=== PATIENT | female | born 1990 | race Caucasian/White ===

== ENCOUNTER 2020-02-19 07:45 | Outpatient (CLI) | payer OTHER ==
[2020-02-20 12:24] LABS: SARS-CoV-2 MS2 Positive; SARS-CoV-2 N Gene Negative; SARS-CoV-2 S Gene Negative; SARS-CoV-2 orf1ab Negative
== END 2020-02-19 07:46 | disposition home or self-care (01) ==
LOC: LABBT 07:45
PROVIDERS: ATTEND Dentist Oral and Maxillofacial Surgery
DX: Z01.812 Encounter for preprocedural laboratory examination (principal); Z11.59 Encounter for screening for other viral diseases; K08.89 Other specified disorders of teeth and supporting structures
CPT/HCPCS: 87635; U0003

== ENCOUNTER 2020-02-22 05:32 | Day surgery (SDC) | payer OTHER ==
[2020-02-22] MEDS ORDERED: Lidocaine 1% w/Epinephrine 1:100K 20 ML VIAL ONE (06:35)
[2020-02-22] MEDS ORDERED: Chlorhexidine Gluconate 15 ML UDCUP SSP ONE (06:35)
[2020-02-22] MEDS ORDERED: Fentanyl 100 MCG/2 ML VIAL ONE ×2 (06:51→08:24)
[2020-02-22] MEDS ORDERED: Lidocaine 2% Jelly 5 ML TUBE ONE (06:55)
[2020-02-22] MEDS ORDERED: AFRIN NASAL MIST 15 ML BOT ONE (06:55)
[2020-02-22] MEDS ORDERED: Midazolam HCl 2 mg/2 ml Vial ONE (07:01)
[2020-02-22] MEDS ORDERED: Dexamethasone 20 MG/5 ML VIAL ONE (09:33)
[2020-02-22] MEDS ORDERED: PROPOFOL 200 MG/20 ML VIAL ONE (09:33)
[2020-02-22] MEDS ORDERED: Glycopyrrolate 0.2 MG/ML 5 ML SYRINGE ONE (09:33)
[2020-02-22] MEDS ORDERED: Ketorolac Tromethamine 30 MG/ML VIAL ONE (09:33)
[2020-02-22] MEDS ORDERED: diphenhydrAMINE 50 MG/ML VIAL ONE (09:33)
[2020-02-22] MEDS ORDERED: Ondansetron PF 4 MG/2 ML Vial ONE (09:33)
[2020-02-22] MEDS ORDERED: Rocuronium Bromide 10 MG/ML (10ML VIAL) ONE (09:33)
--- NOTE | 2020-02-23 09:19 | OP ---
DATE OF PROCEDURE: 02/22/2020 PREOPERATIVE DIAGNOSES: Trauma, fractured versus avulsed tooth 9, uncooperative for exam and x-rays in office. POSTOPERATIVE DIAGNOSES: Avulsed tooth #9; generalized periodontal disease, moderate, with abundant calculus and plaque accumulation; abscessed tooth 31 with class III furcation. PROCEDURES PERFORMED: 1. Exam under anesthesia. 2. Full mouth calculus debridement. 3. Simple extraction of tooth 31. 4. Curette of site #9. BRIEF PATIENT HISTORY AND PROCEDURE IN DETAIL: This is a 30-year-old female, here for exam under anesthesia, possibly extraction of root #9, and any other indicated procedures. The patient fell a little over a month ago, broke off tooth #9, unable to get x-rays in the office or exam. The patient was not cooperative for those, so the patient was taken to the operating room for exam under anesthesia and the above-noted procedures. The patient was intubated orally by Anesthesia. A throat pack was placed. Local anesthetic infiltration was given above #9 vestibule. Full-thickness mucoperiosteal flap was elevated over that area, curette of the socket where the tooth was. There was no root present. Root must have been completely avulsed at the time of tooth loss or trauma. Generalized gingival erythema and calculus deposits were noted throughout the mouth as well as hair deposits in between the teeth. This was due to the patient's current history of she does eat her hair. Curettes and scalers were used to debride gross calculus from the coronal surface of all teeth. Teeth were then irrigated and brushed with Peridex. On exam intraorally, it was noted there was a buccal parulis on tooth #31. Tooth had class III mobility as well as a class III furcation involvement and deep probing depth on the buccal. So, this tooth was removed with a simple forceps and curetted the socket. Surgicel was placed in the socket. At the termination of procedure, the throat pack was removed. The patient tolerated the procedure well. The patient's grandmother and truck driver were told to have her drink cool water for the next couple of days if she is not able to rinse or follow instructions to rinse and to take ibuprofen every 6 to 8 hours for the next 24 to 48 hours. Job ID: [id number]
== END 2020-02-22 09:40 | disposition short-term general hospital (02) ==
LOC: SDC 05:32
PROVIDERS: ATTEND Dentist Oral and Maxillofacial Surgery
PROC: 0CDXXZ0 Extraction of Lower Tooth, Single, External Approach (ICD-10-PCS; principal; 2020-02-22)
PROC: 0CCWXZ2 Extirpation of Matter from Upper Tooth, All, External Approach (ICD-10-PCS; principal; 2020-02-22)
PROC: 0CCXXZ2 Extirpation of Matter from Lower Tooth, All, External Approach (ICD-10-PCS; principal; 2020-02-22)
DX: S03.2XXA Dislocation of tooth, initial encounter (principal); K03.6 Deposits [accretions] on teeth; K04.7 Periapical abscess without sinus; K05.6 Periodontal disease, unspecified; K02.9 Dental caries, unspecified; G80.9 Cerebral palsy, unspecified; F79 Unspecified intellectual disabilities; K59.09 Other constipation; F41.9 Anxiety disorder, unspecified; M41.85 Other forms of scoliosis, thoracolumbar region; F50.89 Other specified eating disorder; Z68.20 Body mass index [BMI] 20.0-20.9, adult; Z79.899 Other long term (current) drug therapy; W19.XXXA Unspecified fall, initial encounter
CPT/HCPCS: J2250; J3010